=== PATIENT | male | born 1975 | race Caucasian/White ===

== ENCOUNTER 2019-04-29 07:15 | Emergency (ER) | payer OTHER ==
[2019-04-29] MEDS ORDERED: Sodium Chloride 0.9% 1,000 ML ONE (07:23)
--- NOTE | 2019-04-29 07:28 | EDM.PDOC ---
ED HPI GENERAL MEDICAL PROBLEM - General Chief Complaint: Neuro Symptoms/Deficits Stated Complaint: [facility] Time Seen by Provider: 04/29/19 07:21 Source of Information: Reports: Patient History Limitations: Reports: Physical Impairment (Patient is severely dysarthric from stroke symptoms and cannot answer questions appropriately.) - History of Present Illness INITIAL COMMENTS - FREE TEXT/NARRATIVE: 43-year-old male presents to the ED per [facility]. Apparently he was found on the floor the bathroom in his own home by his this morning. He was unable to speak normally a severe dysarthric speech which is difficult to understand at all. At appreciated he had a complete paralysis of the right side of his body. Is it is unclear at this time, long he has been down on the floor. Her Buitrago cannot ascertain for sure when stroke symptoms occurred. Apparently he does not take any medications. Apparently does not drink alcohol according to his . He does not follow-up regularly with a physician. Paramedics indicate blood sugar was 41 on seen. Patient is not known to be diabetic. Stroke alert was called on this patient. Onset: Today, Unknown/Unsure Onset Date: 04/29/19 Location: Reports: Other ( is a complete right-sided hemiparesis and severe dysarthria with speech not discernible.) Severity: Severe Improves with: Reports: None Worsens with: Reports: None Context: Reports: Other (Found on bathroom floor this morning by his proximal be 0530 hrs. area he cannot speak to her and could not get up on his own volition.). Denies: Activity, Exercise, Lifting, Sick Contact, Trauma Associated Symptoms: Denies: Confusion, Chest Pain, Cough, cough w sputum Treatments ENVIRONMENTAL COORDINATOR: Reports: Other (see below) - Related Data Allergies Allergy/AdvReac Type Severity Reaction Status Date / Time No Known Allergies Allergy Verified 04/29/19 07:46 Home Meds: Home Meds . [No Known Home Meds] 04/29/19 [History] Social & Family History - Living Situation & Occupation Living situation: Reports: Occupation: Employed ED ROS GENERAL - Review of Systems Review Of Systems: Unable To Obtain (Checo is had a stroke and speech is very dysarthric and therefore not able to obtain functional inquiry.) Reason Not Obtained: Patient has had a stroke and is severely dysarthric. ED EXAM, NEURO - Physical Exam Exam: See Below Exam Limited By: Physical Impairment General Appearance: Alert, Severe Distress, Other Eye Exam: Bilateral Eye: Normal Fundi, Normal Inspection, PERRL (No gaze palsy evident.) Ears: Normal TMs Throat/Mouth: Other (Tongue is dry.) Head Exam: Atraumatic, Normocephalic, Other Neck: Normal Inspection (No overt signs of head or facial trauma.), Supple Respiratory/Chest: Lungs Clear, Normal Breath Sounds, No Accessory Muscle Use, Chest Non-Tender, Respiratory Distress Cardiovascular: Normal Peripheral Pulses, No Murmur (O2 sats range between 92 and 93% on room air.), No Rub, Tachycardia (Initially tachycardic at 1 30/m this is slowly come down to 1 20/m. The patient is still being with needles for blood collection) GI/Abdominal: Normal Bowel Sounds, Soft, Non-Tender, No Organomegaly, Other ( Minimal umbilical hernia. No other surgical scars appreciated) Neurological: Babinski, Straight Leg Raise (L), Other (Right side. Right-sided hemiparesis appreciated. Patient has severe dysarthria and speech is not discernible. Right facial muscle weakness and slight droop. Uvula is in the midline.). No: Normal Dorsiflexion, CN II-XII Intact, Straight Leg Raise (R) DTR: 1+: Bicep (R), Bicep (L), Achilles (R), Achilles (L), 2+: Patella (R), 3+: Patella (L) Extremities: Normal Inspection, Other (Complete right-sided hemiparesis arm and leg.). No: Normal Range of Motion, Non-Tender Psychiatric: Anxious Skin Exam: Warm, Dry, Intact, Normal Color, No Rash ED NEURO PROCEDURES - Endotracheal Intubation ET Intubation Indication: Airway Protection, Other (Intracranial hemorrhage in transport per error to [place].) Preparation: Suction, Balloon Tested, BVM Set Up, Difficult Airway Equip Airway Assessment: Large Tongue Pre-Oxygenation: Assisted with BVM, 100% FiO2 Anesthesia Meds: Etomidate, Lidocaine ( 210 2/1/50 milligrams ), Midazolam (52 mg), Succinylcholine ( 2 mg) Placement: Orotracheal Cords Visualized: Yes, Grade 2 Number of Attempts: 1 Confirmed By: CO2 Indicator, Bilateral Breath Sounds, Chest Xray Tube Secured By: Other Endotracheal Intubation Comment: The initial chest x-ray suggested that the ET tube was above the clavicles at 21 cm. I had initially placed at 23 cm but there seemed to be decreased air entry to the left lung field on examination and therefore was withdrawn 2 cm. To improve airflow to the left lung field. However the chest x-ray suggests that the ET tube needs to be placed further down the trachea and therefore I did this placing it at 23 cm corner of the right lip and the tube was resecured. ED CENTRAL LINE INSERTION - Central Line Insertion Central Line Indication: IV access Site: femoral (L) Prep: CDC/MBT Guidelines, Sterile Drapes, Chlorhexidine Lumen: triple Gauge: 7Fr Ultrasound guided: No Guidewire and dilator removed intact: Yes Micropuncture kit used: No Complications: No Complication Description: Attempts first wire with the right subclavian vein. Patient is a very large gentleman and had a very prominent clavicle. I was unable to get underneath the clavicle to obtain subclavian vein access. The procedure was therefore aborted. Attempt at right femoral vein access carried out. I was able to find a vein with no problem good return of blood. Introduction of guidewire with no problem. However on attempt to insert the dilator obtained inability to do so. There appeared to be a cake that had developed in the guidewire. On attempts to remove the guidewire it unraveled and therefore the procedure was aborted and the venous dilator and the guidewire were removed in total. Patient did develop a significant hematoma in the right groin and had compression on it for about 20 minutes in the ED. I then did suture the puncture wound which was about 8 mm in length with 2 4-0 Ethilon sutures. Post placement confirmation: CXR, all ports aspirated, all ports flushed CXR post-procedure: no pneumothorax, other (There is collapse of the left upper lobe and left middle lobe of the lung on chest x-ray obtained after procedure. No pneumothorax is identified. had been suctioned many times during the procedures with no significant blood obtained from the airway. Appears that he has some occlusion of the right main bronchus. Other consideration is possible venous bleeding from subclavian vein. Will need CT scan upon arrival in [place] of the chest or at least a chest x-ray to identify whether or not the upper lobes have opened up with increased PEEP and tidal volume.) Dressing applied: by nurse, op-site dressing EKG INTERPRETATION EKG Date: 04/29/19 Time: 07:25 Rhythm: Other (Sinus tachycardia at 113. Minute) Rate (Beats/Min): 113 [place]: Normal P-Wave: Enlarged QRS: Other (Consider left atrial hypertrophy. There are Q waves in lead V1 and V2 cannot rule out an old anteroseptal myocardial infarction. There is early R- wave transition suggestive of septal hypertrophy. There is decreased voltage in the limb leads.) QT: Prolonged (QTC is moderately prolonged) EKG Interpretation Comments: Abnormal ECG Course - Vital Signs Last Recorded V/S: Last Vital Signs Temp 35.8 C 04/29/19 07:31 Pulse 118 H 04/29/19 07:31 Resp 18 04/29/19 07:31 BP 189/117 H 04/29/19 07:31 Pulse Ox 93 L 04/29/19 07:31 - Orders/Labs/Meds Orders: Active Orders 24 hr Category Date Time Status EKG Documentation Completion [RC] STAT Care 04/29/19 07:23 Active Insert Buitrago Catheter [Insert Urinary Catheter] [OM.PC] Care 04/29/19 07:45 Ordered Q24H Oxygen Therapy [RC] ASDIRECTED Care 04/29/19 07:24 Active Urinary Catheter Assessment [RC] ASDIRECTED Care 04/29/19 07:37 Active Insulin Regular, Human [HumuLIN R] 100 unit Med 04/29/19 09:00 Active Sodium Chloride 0.9% [Normal Saline] 99 ml IV TITRATE Labetalol [Normodyne] 100 mg Med 04/29/19 07:45 Active Sodium Chloride 0.9% [Normal Saline] 80 ml IV TITRATE Mannitol [Mannitol 20%] Med 04/29/19 08:30 Active 100 gm in 500 ml IV ONETIME Sodium Chloride 0.9% [Normal Saline] 1,000 ml Med 04/29/19 07:45 Active IV ASDIRECTED Medication Orders Labetalol HCl 100 mg/ Sodium (Chloride) 100 mls @ 30 mls/hr IV TITRATE LYNDA; Protocol Sodium Chloride (Normal Saline) 1,000 mls @ 100 mls/hr IV ASDIRECTED LYNDA Last Admin: 04/29/19 07:20 Dose: 100 mls/hr Mannitol (Mannitol 20%) 100 gm in 500 mls @ 100 mls/hr IV ONETIME ONE Stop: 04/29/19 13:29 Insulin Human Regular 100 unit (/ Sodium Chloride) 100 mls @ 3 mls/hr IV TITRATE LYNDA; Protocol Labs: Laboratory Tests 04/29/19 04/29/19 04/29/19 Range/Units 07:40 07:40 07:40 WBC 6.55 (4.23-9.07) K/mm3 RBC 4.95 (4.63-6.08) M/mm3 Hgb 16.3 (13.7-17.5) gm/dl Hct 46.7 (40.1-51.0) % MCV 94.3 H (79.0-92.2) fl MCH 32.9 H (25.7-32.2) pg MCHC 34.9 (32.2-35.5) g/dl RDW Std Deviation 42.6 (35.1-43.9) fL Plt Count 190 (163-337) K/mm3 MPV 9.6 (9.4-12.3) fl Neut % (Auto) 67.8 (34.0-67.9) % Lymph % (Auto) 21.1 L (21.8-53.1) % Ritchie % (Auto) 8.5 (5.3-12.2) % Eos % (Auto) 1.4 (0.8-7.0) Baso % (Auto) 0.6 (0.1-1.2) % Neut # (Auto) 4.44 (1.78-5.38) K/mm3 Lymph # (Auto) 1.38 (1.32-3.57) K/mm3 Ritchie # (Auto) 0.56 (0.30-0.82) K/mm3 Eos # (Auto) 0.09 (0.04-0.54) K/mm3 Baso # (Auto) 0.04 (0.01-0.08) K/mm3 PT 10.7 (9.7-12.0) SECONDS INR 0.98 APTT 26 (22-31) SECONDS Sodium 137 (136-145) mEq/L Potassium 2.9 L (3.5-5.1) mEq/L Chloride 98 (98-107) mEq/L Carbon Dioxide 29 (21-32) mEq/L Anion Gap 12.9 (5-15) BUN 9 (7-18) mg/dL Creatinine 1.1 (0.7-1.3) mg/dL Est Cr Clr Drug Dosing 83.77 mL/min Estimated GFR (MDRD) > 60 (>60) mL/min BUN/Creatinine Ratio 8.2 L (14-18) Glucose 394 H (74-106) mg/dL Hemoglobin A1c (4.50-6.20) % Serum Osmolality (280-300) mosm/kg Calcium 9.3 (8.5-10.1) mg/dL Magnesium 1.6 L (1.8-2.4) mg/dl Total Bilirubin 0.5 (0.2-1.0) mg/dL AST 84 H (15-37) U/L ALT 84 H (16-63) U/L Alkaline Phosphatase 124 H (46-116) U/L Creatine Kinase (39-308) U/L Troponin I < 0.017 (0.00-0.056) ng/mL C-Reactive Protein 0.9 (<1.0) mg/dL Total Protein 8.4 H (6.4-8.2) g/dl Albumin 3.7 (3.4-5.0) g/dl Globulin 4.7 gm/dL Albumin/Globulin Ratio 0.8 L (1-2) Ethyl Alcohol 0.00 (0.00) gm% Ketones (0.0-0.3) mM 04/29/19 04/29/19 04/29/19 Range/Units 07:40 07:40 07:40 WBC (4.23-9.07) K/mm3 RBC (4.63-6.08) M/mm3 Hgb (13.7-17.5) gm/dl Hct (40.1-51.0) % MCV (79.0-92.2) fl MCH (25.7-32.2) pg MCHC (32.2-35.5) g/dl RDW Std Deviation (35.1-43.9) fL Plt Count (163-337) K/mm3 MPV (9.4-12.3) fl Neut % (Auto) (34.0-67.9) % Lymph % (Auto) (21.8-53.1) % Ritchie % (Auto) (5.3-12.2) % Eos % (Auto) (0.8-7.0) Baso % (Auto) (0.1-1.2) % Neut # (Auto) (1.78-5.38) K/mm3 Lymph # (Auto) (1.32-3.57) K/mm3 Ritchie # (Auto) (0.30-0.82) K/mm3 Eos # (Auto) (0.04-0.54) K/mm3 Baso # (Auto) (0.01-0.08) K/mm3 PT (9.7-12.0) SECONDS INR APTT (22-31) SECONDS Sodium (136-145) mEq/L Potassium (3.5-5.1) mEq/L Chloride (98-107) mEq/L Carbon Dioxide (21-32) mEq/L Anion Gap (5-15) BUN (7-18) mg/dL Creatinine (0.7-1.3) mg/dL Est Cr Clr Drug Dosing mL/min Estimated GFR (MDRD) (>60) mL/min BUN/Creatinine Ratio (14-18) Glucose (74-106) mg/dL Hemoglobin A1c 9.40 H (4.50-6.20) % Serum Osmolality 316 H (280-300) mosm/kg Calcium (8.5-10.1) mg/dL Magnesium (1.8-2.4) mg/dl Total Bilirubin (0.2-1.0) mg/dL AST (15-37) U/L ALT (16-63) U/L Alkaline Phosphatase (46-116) U/L Creatine Kinase 121 (39-308) U/L Troponin I (0.00-0.056) ng/mL C-Reactive Protein (<1.0) mg/dL Total Protein (6.4-8.2) g/dl Albumin (3.4-5.0) g/dl Globulin gm/dL Albumin/Globulin Ratio (1-2) Ethyl Alcohol (0.00) gm% Ketones (0.0-0.3) mM 04/29/19 Range/Units 07:40 WBC (4.23-9.07) K/mm3 RBC (4.63-6.08) M/mm3 Hgb (13.7-17.5) gm/dl Hct (40.1-51.0) % MCV (79.0-92.2) fl MCH (25.7-32.2) pg MCHC (32.2-35.5) g/dl RDW Std Deviation (35.1-43.9) fL Plt Count (163-337) K/mm3 MPV (9.4-12.3) fl Neut % (Auto) (34.0-67.9) % Lymph % (Auto) (21.8-53.1) % Ritchie % (Auto) (5.3-12.2) % Eos % (Auto) (0.8-7.0) Baso % (Auto) (0.1-1.2) % Neut # (Auto) (1.78-5.38) K/mm3 Lymph # (Auto) (1.32-3.57) K/mm3 Ritchie # (Auto) (0.30-0.82) K/mm3 Eos # (Auto) (0.04-0.54) K/mm3 Baso # (Auto) (0.01-0.08) K/mm3 PT (9.7-12.0) SECONDS INR APTT (22-31) SECONDS Sodium (136-145) mEq/L Potassium (3.5-5.1) mEq/L Chloride (98-107) mEq/L Carbon Dioxide (21-32) mEq/L Anion Gap (5-15) BUN (7-18) mg/dL Creatinine (0.7-1.3) mg/dL Est Cr Clr Drug Dosing mL/min Estimated GFR (MDRD) (>60) mL/min BUN/Creatinine Ratio (14-18) Glucose (74-106) mg/dL Hemoglobin A1c (4.50-6.20) % Serum Osmolality (280-300) mosm/kg Calcium (8.5-10.1) mg/dL Magnesium (1.8-2.4) mg/dl Total Bilirubin (0.2-1.0) mg/dL AST (15-37) U/L ALT (16-63) U/L Alkaline Phosphatase (46-116) U/L Creatine Kinase (39-308) U/L Troponin I (0.00-0.056) ng/mL C-Reactive Protein (<1.0) mg/dL Total Protein (6.4-8.2) g/dl Albumin (3.4-5.0) g/dl Globulin gm/dL Albumin/Globulin Ratio (1-2) Ethyl Alcohol (0.00) gm% Ketones 0.24 (0.0-0.3) mM Meds: Medications Generic Name Dose Route Start Last Admin Trade Name Peewee PRN Reason Stop Dose Admin Labetalol HCl 100 mg/ Sodium 100 mls @ 30 mls/hr 04/29/19 07:45 Chloride IV TITRATE LYNDA Protocol 0.5 MG/MIN Sodium Chloride 1,000 mls @ 100 mls/hr 04/29/19 07:45 04/29/19 07:20 Normal Saline IV 100 mls/hr ASDIRECTED LYNDA Administration Mannitol 100 gm in 500 mls @ 100 mls/hr 04/29/19 08:30 Mannitol 20% IV 04/29/19 13:29 ONETIME ONE Insulin Human Regular 100 unit 100 mls @ 3 mls/hr 04/29/19 09:00 / Sodium Chloride IV TITRATE LYNDA Protocol 3 UNIT/HR Discontinued Medications Generic Name Dose Route Start Last Admin Trade Name Peewee PRN Reason Stop Dose Admin Etomidate 52 mg 04/29/19 08:01 Amidate IVPUSH 04/29/19 08:02 ONETIME ONE Etomidate Confirm 04/29/19 08:06 Amidate Administered 04/29/19 08:07 Dose 40 mg IVPUSH .STK-MED ONE Sodium Chloride Confirm 04/29/19 07:23 Normal Saline Administered 04/29/19 07:24 Dose 1,000 mls @ as directed .ROUTE .STK-MED ONE Mannitol Confirm 04/29/19 08:16 Mannitol 20% Administered 04/29/19 08:17 Dose 100 gm in 500 mls @ as directed .ROUTE .STK-MED ONE Propofol Confirm 04/29/19 08:43 Diprivan 100 Ml Administered 04/29/19 08:44 Dose 100 mls @ as directed .ROUTE .STK-MED ONE Potassium Chloride Confirm 04/29/19 08:49 Kcl 10 Meq In Water 100 Ml Administered 04/29/19 08:50 Dose 300 mls @ as directed .ROUTE .STK-MED ONE Magnesium Sulfate Confirm 04/29/19 08:50 Magnesium Sulfate In Water Premix Administered 04/29/19 08:51 Dose 50 mls @ as directed .ROUTE .STK-MED ONE Magnesium Sulfate 2 gm/ Premix 50 mls @ 25 mls/hr 04/29/19 08:49 IV 04/29/19 10:48 ONETIME ONE Potassium Chloride 10 meq/ 100 mls @ 100 mls/hr 04/29/19 09:00 Premix IV 04/29/19 10:59 Q1H LYNDA Insulin Human Regular 100 unit 100 mls @ 3 mls/hr 04/29/19 09:00 / Sodium Chloride IV TITRATE LYNDA Protocol Labetalol HCl 20 mg 04/29/19 07:31 Normodyne IVPUSH 04/29/19 07:32 ONETIME ONE Protocol Labetalol HCl Confirm 04/29/19 07:32 Normodyne Administered 04/29/19 07:33 Dose 100 mg .ROUTE .STK-MED ONE Lidocaine HCl 130 mg 04/29/19 08:03 Xylocaine 2% 1 mg/kg (130 mg) 04/29/19 08:04 IVPUSH ONETIME ONE Midazolam HCl 2 mg 04/29/19 08:02 Versed 1 Mg/Ml IVPUSH 04/29/19 08:03 ONETIME ONE Rocuronium [place] 8.5 mg 04/29/19 08:24 Zemuron IVPUSH 04/29/19 08:25 ONETIME ONE Succinylcholine Chloride 210 mg 04/29/19 08:03 Succinylcholine In Ns Pf IV 04/29/19 08:04 ONETIME ONE - Radiology Interpretation Free Text/Narrative:: 43-year-old male presents to the ED per [facility]. Her speaking with his who is now here his symptoms seemed to develop around 0530 hrs. this morning. He did manage to get out of bed but seemed to be ataxic and the thought he was experiencing vertigo. He did make it to the bathroom as he had to vomit but never did vomit. He then did make it back to the bed and stood at the side of the bed for a period of time. His speech then seemed to become more dysarthric and difficult to understand. went to call 911 in the kitchen and she heard a thud when he had fallen to the floor. He was found therefore the bedside. She estimates that he fell approximately 0550 hrs. this morning. On examination he has a complete right-sided hemiparesis and severely dysarthric and speech is barely discernible for simple questions. He does not take any medications. He has not seen a physician for many years. Paramedics identified a blood sugar 41 on seen suggesting he may be an occult type II diabetic. Plan patient be taken to the CT suite immediately. - Re-Assessments/Exams Free Text/Narrative Re-Assessment/Exam: 04/29/19 07:07 CT of the brain reveals a large intraparenchymal hemorrhage on the left side in the lentiform nucleus measuring 4.7 x 2.9 x 3.8 cm. Mild rightward shift of midline structures at the level of the upper septum pellucidum measuring 2.1 mm. this suggest a hypertensive bleed. Case has been dressed with interventional neurosurgeon at [facility] in [place]. Septic care although they have not yet received the CT electronically. It was sent once again. As well on CD-ROM. We will look for the closest flight transport available. I will be to intubate the patient since his sats remained 91-92% on room air. 04/29/19 08:10: Intubated with the aid of Versed 2 mg IV followed by etomidate 52 mg and lidocaine 140 mg and succinylcholine 210 mg. With a #8.0 ET tube at 22 cm right corner lip. ET tube secured by respiratory therapist. Air entry to both lung leblanc. O2 sats 100% PCO2 monitor attached. Post intubation chest x- ray to be obtained. Buitrago catheter to be placed. 04/29/19 08:27 Flight team is here and will be transporting the patient shortly to [place]. 04/29/19 08:43 Chest x-ray reveals the ET tube well above the clavicles. It was therefore introduced 2 cm further into the airway and clinically is 23 cm at the corner of the lip. Patient was given rocuronium 100 mg IV push. A pressure remains elevated at 182/92. He will be started on propofol drip. Paramedics of also given him 200 mg of ketamine which does not seem to have provided satisfactory sedation. Will be given 20 g of mannitol. 04/29/19 08:47 Labs reveal a normal white count at 6.55. The auto differential shows 67.8% neutrophils. Hemoglobin is slightly elevated at 16.3 with hematocrit of 46.7. Platelet count is normal 190,000. PT is 10.7 with an INR of 0.98. PTT is 26. Sodium is 137. Potassium is low at 2.9 and is 98 with a bicarbonate of 29. Anion gap is 12.9. BUN is 9 with a creatinine of 1.1 estimated GFR is greater than 60. Glucose is elevated at 394 hemoglobin A1c is 9.40 confirming the patient is in fact a occult type II diabetic. Calcium is 9.3. Magnesium slightly low at 1.6. Total bilirubin is 0.5 AST mildly elevated at 84. ALT is elevated at 84 as well. Alkaline phosphatase is 124. CPK is 121. Troponin I is less than 0.017. C-reactive protein is less than 0.9 total protein 8.43 albumin fraction of 3.7. Blood alcohol is 0.00 04/29/19 08:50 Labs reveals significant potassium depletion secondary to uncontrolled type 2 diabetes which was occult. She will be given K rider 10 mg IV every hourly 2 by that time he will be in [place]. Magnesium will be given 2 g IV over the next hour. He will be started on insulin infusion at 3 units an hour since he is insulin beverly. This should bring down his blood sugar gradually. Will have serum ketones and serum osmolality checked as well. 04/29/19 10:00: Patient requires further IV access and nurses and paramedics were unable to find a another vein after numerous attempts. I therefore tented a central line in his right subclavian vein without success due to deep large clavicle and inability get underneath it due to his size. Therefore the procedure was aborted. Pressure was placed on the wound but there was minimal blood loss. But then I attempted a right femoral vein central line access. I was able to access the vein without any difficulty and placed the guidewire without much difficulty. However unable to get the dilator to pass over the guidewire. It became apparent that there was a kink in the guidewire and further attempts to uncontrolled it failed. I had to therefore brought to procedure as the guidewire started to unravel and I had to remove the guidewire and the dilator intact. Patient did have significant bleeding from the right femoral vein access site and pressure was applied for approximately 20 minutes. After left femoral vein access was obtained and a triple-lumen 7 Sloven[place] catheter placed and sutured it intact to the left anterior thigh I then sutured the wound in the right groin with 2 4-0 Ethilon sutures to provide stasis. The wound is approximately 8 mm in length and secondary to stab wound to facilitate the dilator passage. The triple-lumen catheter was sutured to the left anterior thigh. She done at the end of the procedure suggested that there was collapse of the right upper lobe and probably portions of the right middle lobe. Deep suctioning failed to improve this when a second x-ray was done after the suctioning. Concern is there was therefore whether or not there could be bleeding from the sub-clavian vein to compress the lung. Suggest CT chest be done upon arrival in [place].Serum ketones are 0.24 within normal range. Serum osmolality is mildly elevated. 04/29/19 11:33: Paramedics checked blood sugar in the air and reported back to me that it was 385. Therefore increased his insulin infusion from 3 units an hour to 6 units an hour. They will check her blood sugar prior to arrival in [place]. I discussed the findings with an ED physician at [facility] indicating the multiple abnormalities identified here besides his intracranial hemorrhage. Patient had his tidal volume increased to 580 from 530. PEEP was increased from 5-10 and attempts to try and open up the right upper lobe of lung. ET tube is in satisfactory position after repositioning 2 cm further down the trachea. Nasogastric tube is in appropriate position. Departure - Departure Time of Disposition: 10:30 Disposition: DC/Tfer to Acute Hospital 02 Condition: Serious Clinical Impression: Intracranial hemorrhage, Hypokalemia, Hypomagnesemia Type 2 diabetes mellitus Qualifiers: Diabetes mellitus terminal clerk insulin use: without usp use Diabetes mellitus complication status: with hyperglycemia Qualified Code(s): E11.65 - Type 2 diabetes mellitus with hyperglycemia - Discharge Information *PRESCRIPTION DRUG MONITORING PROGRAM REVIEWED*: Not Applicable *COPY OF PRESCRIPTION DRUG MONITORING REPORT IN PATIENT JULIANNA: Not Applicable Referrals: PCP,None [Primary Care Provider] - Forms: ED Department Discharge Additional Instructions: She'll be transferred to [facility] in [place] for any interventional neurosurgical consultation and management. Suspected to have a spontaneous bleed in the left lentiform [id number] measuring 4.7 x 2.9 x 3.8 cm Mild midline shift of 2.1 cm to the right side. Mild partial effacement of the left lateral ventricle. Coincidental bilateral frontal sinus mucosal thickening. Bilateral anterior ethmoid air cell mucosal thickening greater on the left side. Critical Care Note - Critical Care Note Total Time (mins): 160 Comments: This included intubation and 3 attempts to complete venous access for central line access completed in the left femoral vein. Sepsis Event Note - Focused Exam Vital Signs: Vital Signs Temp Pulse Resp BP Pulse Ox 04/29/19 07:31 35.8 C 118 H 18 189/117 H 93 L Date Exam was Performed: 04/29/19 Time Exam was Performed: 11:58 - My Orders Last 24 Hours: My Active Orders 04/29/19 07:23 EKG Documentation Completion [RC] STAT 04/29/19 07:24 Oxygen Therapy [RC] ASDIRECTED 04/29/19 07:37 Urinary Catheter Assessment [RC] ASDIRECTED 04/29/19 07:45 Insert Buitrago Catheter [Insert Urinary Catheter] [OM.PC] Q24H Labetalol [Normodyne] 100 mg Sodium Chloride 0.9% [Normal Saline] 80 ml IV TITRATE Sodium Chloride 0.9% [Normal Saline] 1,000 ml IV ASDIRECTED 04/29/19 08:30 Mannitol [Mannitol 20%] 100 gm in 500 ml IV ONETIME 04/29/19 09:00 Insulin Regular, Human [HumuLIN R] 100 unit Sodium Chloride 0.9% [Normal Saline] 99 ml IV TITRATE - Assessment/Plan Last 24 Hours: My Active Orders 04/29/19 07:23 EKG Documentation Completion [RC] STAT 04/29/19 07:24 Oxygen Therapy [RC] ASDIRECTED 04/29/19 07:37 Urinary Catheter Assessment [RC] ASDIRECTED 04/29/19 07:45 Insert Buitrago Catheter [Insert Urinary Catheter] [OM.PC] Q24H Labetalol [Normodyne] 100 mg Sodium Chloride 0.9% [Normal Saline] 80 ml IV TITRATE Sodium Chloride 0.9% [Normal Saline] 1,000 ml IV ASDIRECTED 04/29/19 08:30 Mannitol [Mannitol 20%] 100 gm in 500 ml IV ONETIME 04/29/19 09:00 Insulin Regular, Human [HumuLIN R] 100 unit Sodium Chloride 0.9% [Normal Saline] 99 ml IV TITRATE
[2019-04-29] MEDS ORDERED: Labetalol 100 MG/20 ML MDV IVPUSH ONE (07:31)
[2019-04-29] MEDS ORDERED: Labetalol 100 MG/20 ML MDV ONE (07:32)
[2019-04-29] MEDS ORDERED: Labetalol 100 MG in Sodium Chloride 0.9% 80 ML IV SCH (07:45)
[2019-04-29] MEDS ORDERED: Sodium Chloride 0.9% 1,000 ML IV SCH (07:45)
[2019-04-29] MEDS ORDERED: Etomidate 2 MG/ML 20 ML SDV IVPUSH ONE ×2 (08:01→08:06)
[2019-04-29] MEDS ORDERED: Midazolam 1 MG/ML 2 ML SDV IVPUSH ONE (08:02)
[2019-04-29] MEDS ORDERED: Lidocaine 2% 100 MG/5 ML Syringe IVPUSH ONE (08:03)
[2019-04-29] MEDS ORDERED: Succinylcholine/Normal Saline 100 MG/5 ML Syringe IV ONE (08:03)
[2019-04-29] MEDS ORDERED: Succinylcholine 200 MG/10 ML MDV ONE (08:15)
[2019-04-29 08:17] LABS: HEMOGLOBIN A1C 9.4 % (4.50-6.20)
[2019-04-29] MEDS ORDERED: Rocuronium 50 MG/5 ML Vial IVPUSH ONE (08:24)
[2019-04-29] MEDS ORDERED: Propofol 200 MG/20 ML SDV ONE (08:30)
[2019-04-29] MEDS ORDERED: propofoL 100 ML ONE (08:43)
[2019-04-29] MEDS ORDERED: Magnesium Sulfate/Water 2 GM in Premix Bag 1 BAG IV ONE (08:49)
[2019-04-29] MEDS ORDERED: Magnesium Sulfate/Water 50 ML ONE (08:50)
[2019-04-29] MEDS ORDERED: Potassium Chloride 10 MEQ in Premix Bag 1 BAG IV SCH (09:00)
[2019-04-29] MEDS ORDERED: Rocuronium 50 MG/5 ML Vial ONE (09:00)
[2019-04-29] MEDS ORDERED: Midazolam 1 MG/ML 5 ML SDV ONE (09:00)
--- NOTE | 2019-04-29 09:52 | CT ---
Head CT Technique: Multiple axial sections through the brain were obtained. Intravenous contrast was not utilized. Comparison: No prior intracranial imaging is available. Findings: Intraparenchymal hemorrhage is identified within the left side of the basal ganglia. Hemorrhage measures about 4.7 cm in AP dimension and about 2.8 cm in transverse dimension. No other intracranial hemorrhage is seen. Ventricles along the basal cisterns and sulci over convexities are mildly prominent. Slight diminished density noted within the periventricular white matter compatible with small vessel ischemic demyelination change. Basal ganglia hemorrhage causes mild mass effect upon the left lateral ventricle but causes no significant midline shift at this time. Bone window settings were reviewed which show fluid and mucosal thickening within the paranasal sinuses. No acute mastoid sinus findings are seen. No acute calvarial abnormality is appreciated. Impression: 1. Left sided parenchymal hemorrhage within the basal ganglia. This causes mild mass effect upon the lateral left ventricle. This finding is most likely due to hypertensive hemorrhage. Please correlate. 2. Sinus disease. Uncertain if findings are chronic or acute given that there appears to be an air-fluid level within the frontal sinus. 3. No other acute finding is seen. Diagnostic code #5 This report was dictated in [place] Standard Time I agree with preliminary report issued by [facility] ([facility] report finalized on 04/29/19, 8:34 AM Central Time)
--- NOTE | 2019-04-29 09:52 | CR ---
Chest: Portable view of the chest was obtained. Comparison: No prior chest x-ray. Heart size and mediastinum are within normal limits for portable technique. Endotracheal tube is seen with tip lying above the clavicles. Partially visualized nasogastric tube is seen which courses off the inferior edge of the film. Lungs are clear with no acute parenchymal change. Bony structures are grossly intact. Impression: 1. Tip of endotracheal tube lies above the clavicles. 2. Tip of nasogastric tube courses off the inferior edge of the film into the stomach. 3. No additional abnormality is appreciated on portable chest x-ray. Diagnostic code #3 This report was dictated in [place] Standard Time
--- NOTE | 2019-04-29 10:27 | CR ---
Chest: Portable view of the chest was obtained. Comparison: Previous chest x-ray performed earlier on same day (8:11 AM). Collapse of the right upper lung is seen as an interval change from previous exam. Additional collapse is seen within portions of the right lower lung. Left lung is clear. Heart size is normal. Tip of endotracheal tube lies at the level of the clavicles. Nasogastric tube courses off the inferior edge of the film. Impression: 1. Collapse of the right upper lung as well as collapse of a portion of the right lower lung. 2. Satisfactory position of endotracheal tube and nasogastric tube. Diagnostic code #3 This report was dictated in [place] Standard Time
--- NOTE | 2019-04-29 10:41 | CR ---
Chest: Portable supine view of the chest was obtained. Comparison: Previous chest x-ray performed earlier on the same day (9:47 AM). Tip of endotracheal tube lies at the upper level of the clavicles. Nasogastric tube is seen with tip coursing into the stomach. Continuing right upper lobe collapse as well as lesser right lower lobe collapse. Left lung is clear. Bony structures are grossly intact. Impression: 1. Continuing collapse of the right upper lung and within a portion of the right lower lung. 2. Tubes and catheters as described above. Diagnostic code #3 This report was dictated in [place] Standard Time
== END 2019-04-29 10:34 ==
LOC: JD.ED 07:15
DX: I62.9 Nontraumatic intracranial hemorrhage, unspecified (principal); E87.6 Hypokalemia; E83.42 Hypomagnesemia; E11.65 Type 2 diabetes mellitus with hyperglycemia; Z79.4 Long term (current) use of insulin
CPT/HCPCS: 31500; 36415; 36556; 43752; 51702; 70450; 71045; 80053; 80320; 82009; 82550; 83036; 83735; 83930; 84484; 85025; 85610; 85730; 86140; 93005; 96361; 96365; 96366; 99291; 99292; J0330; J1815; J2250; J2704; J3475; J3480; J3490; J7030; J7050; 93010; G0480